=== PATIENT | female | born 1980 | race Two or more races ===

== ENCOUNTER 2017-03-30 21:51 | Emergency (ER) | payer OTHER ==
[~2017-03-30] VITALS: Ht 162.6 cm; Wt 81.0 kg
[2017-03-30] MEDS ORDERED: SODIUM CHLORIDE FLUSH 10ML SYR IVF ONE (22:00)
[2017-03-30] MEDS ORDERED: SODIUM CHLORIDE 0.9% 1,000ML IVBOLUS ONE (22:00)
[2017-03-30] MEDS ORDERED: ONDANSETRON 2MG/ML, 2ML IVPush ONE (22:00)
[2017-03-30] MEDS ORDERED: HYDROmorphone 1 MG/ML, 1ML IVPush PRN (22:00)
[2017-03-30] MEDS ORDERED: LORazepam 2 MG/ML, 1ML IVPush ONE (22:00)
[2017-03-30] MEDS ORDERED: PLEASE ENTER ALLERGIES MC SCH ×2 (22:00)
[2017-03-30] MEDS ORDERED: OXYC-302 PO (22:12)
[2017-03-30] MEDS ORDERED: LORazepam 2 MG/ML, 1ML ONE (22:25)
[2017-03-30 22:43] LABS: ASPARTATE AMINO TRANSFERASE 41 U/L (15-37); BLOOD UREA NITROGEN 14 mg/dL (7-18)
[2017-03-30] MEDS ORDERED: DIPHENHYDRAMINE 50 MG/ML, 1ML ONE (23:07)
[2017-03-30] MEDS ORDERED: methylPREDNISolone SOD SUCC 125 MG/2 ML ONE (23:07)
[2017-03-30] MEDS ORDERED: EPINEPHRINE 1 MG/ML, 1ML ONE (23:08)
[2017-03-30] MEDS ORDERED: FAMOTIDINE 20 MG/2 ML ONE (23:08)
[2017-03-30] MEDS ORDERED: SODIUM CHLORIDE 0.9% 1,000 ML IV ONE (23:10)
[2017-03-30] MEDS ORDERED: EPINEPHRINE 1 MG/ML, 1ML SQ ONE (23:30)
[2017-03-30] MEDS ORDERED: FAMOTIDINE 20 MG/2 ML IVPush ONE (23:30)
[2017-03-30] MEDS ORDERED: DIPHENHYDRAMINE 50 MG/ML, 1ML IVPush ONE (23:30)
[2017-03-30] MEDS ORDERED: methylPREDNISolone SOD SUCC 125 MG/2 ML IVPush ONE (23:30)
[2017-03-30] MEDS ORDERED: OMNIPAQUE 350 MG/ML, 100ML BOTTLE ONE (23:31)
[2017-03-31 01:48] VITALS: BP 113/62
== END 2017-03-31 01:57 | disposition home or self-care (01) ==
LOC: ED 23:59
DX: N13.2 Hydronephrosis with renal and ureteral calculous obstruction (principal); N20.1 Calculus of ureter; R10.2 Pelvic and perineal pain; Z90.710 Acquired absence of both cervix and uterus
CPT/HCPCS: 36415; 51701; 74177; 80053; 81001; 83690; 85025; 87086; 96361; 96372; 96374; 96375; 99285; J0171; J1200; J2060; J2930; J7030; Q9967; P9612; S0028

== ENCOUNTER 2017-10-30 02:14 | Emergency (ER) | payer OTHER ==
[~2017-10-30] VITALS: Ht 162.6 cm; Wt 90.2 kg
[~2017-10-30 02:14] MED LIST: OXYC-302 PO
[2017-10-30] MEDS ORDERED: IBUPROFEN 200 MG TABLET ONE (02:50)
[2017-10-30] MEDS ORDERED: IBUPROFEN 200 MG TABLET PO ONE (03:00)
[2017-10-30] MEDS ORDERED: KETOROLAC 30 MG/1 ML ONE (03:00)
[2017-10-30] MEDS ORDERED: KETOROLAC 30 MG/1 ML IM ONE (03:00)
[2017-10-30 03:08] VITALS: BP 126/54
[2017-10-30] MEDS ORDERED: BACITRACIN ZINC OINT 500U/GM, 0.9 GM ONE (04:14)
[2017-10-30] MEDS ORDERED: BACITRACIN ZINC OINT 500U/GM, 0.9 GM TP PRN (04:30)
== END 2017-10-30 04:31 | disposition home or self-care (01) ==
LOC: ED 02:50
DX: S63.511A Sprain of carpal joint of right wrist, initial encounter (principal); S50.312A Abrasion of left elbow, initial encounter; G89.11 Acute pain due to trauma; W01.0XXA Fall on same level from slipping, tripping and stumbling without subsequent striking against object, initial encounter; Y93.89 Activity, other specified; Y92.89 Other specified places as the place of occurrence of the external cause; Y99.8 Other external cause status
CPT/HCPCS: 29260; 73110; 96372; 99284; J1885

== ENCOUNTER → 2019-11-15 | Outpatient (CLI) | payer OTHER | END | disposition home or self-care (01) | LOC: RAD 12:03 | PROVIDERS: ATTEND Internal Medicine Gastroenterology | DX: K21.9 Gastro-esophageal reflux disease without esophagitis (principal); I89.8 Other specified noninfective disorders of lymphatic vessels and lymph nodes; K64.9 Unspecified hemorrhoids; K59.00 Constipation, unspecified; K92.1 Melena | CPT/HCPCS: 74018 ==